=== PATIENT | male | born 1995 | race Caucasian/White ===

== ENCOUNTER 2017-09-20 16:22 | Emergency (ER) | payer OTHER ==
[~2017-09-20] VITALS: Ht 190.5 cm; Wt 76.0 kg
[2017-09-20 16:32] VITALS: TEMP 36.9; Ht 190.5 cm; Wt 76.0 kg
[2017-09-20] MEDS ORDERED: LIDOCAINE/EPINEPH/TETRACAINE 1 EA SYR EXT STA (16:42)
--- NOTE | 2017-09-20 17:14 | EMERGENCY ROOM VISIT NOTE ---
ED Visit Note First contact with patient: 16:39 CHIEF COMPLAINT: Facial laceration HISTORY OF PRESENT ILLNESS: This 21-year-old male patient presents emergency department complaining of a laceration to the right eyebrow that occurred 1 hour prior to arrival. The patient butted heads with someone else while playing basketball.. There was no loss of consciousness, vomiting, or unusual behavior afterwards. Denies neck pain. No headache, nausea, or blurred vision. There is no active bleeding. The patient rates the pain as 0/10. The patient's tetanus shot is up to date. REVIEW OF SYSTEMS: A 6 system review of systems was completed with positives and pertinent negatives listed in the HPI. ALLERGIES: No known drug allergies MEDICATIONS: Reviewed PMH: Otherwise healthy SOCIAL HISTORY: Denies tobacco use occasional EtOH. The patient is a [employer] PHYSICAL EXAM: Vital Signs: Reviewed Nurse's notes, vital signs stable. GENERAL : 21-year-old male, in no acute distress, well-developed, well-nourished. NEURO : The patient is alert and oriented to person place and time. No focal neurological defects. EYES: Pupils are round, equal, and react to light. EOMI. NECK: Supple. No cervical spine tenderness. FACE: No facial bone tenderness or mandibular tenderness SKIN: There is a 2 cm laceration in the lateral aspect of the right eyebrow. The edges gape apart with traction. There is no active bleeding and no foreign material in the wound. There are no deep structures present. EMERGENCY DEPARTMENT COURSE: I examined the patient. Let gel was applied to the wound. Verbal consent was obtained to perform the procedure. Using sterile technique the wound was cleansed with Betadine. Once the patient was anesthetized, the wound was copiously irrigated under pressure with sterile saline. The wound was explored and was as described above. The laceration was repaired using 5 simple interrupted 6-0 nylon sutures with the wound edges being well approximated. The patient tolerated the procedure well. Hemostasis was achieved. The area was cleaned with sterile saline and dressed with bacitracin ointment. . The patient was discharged home in good condition. DIAGNOSIS: Facial laceration DISCHARGE INSTRUCTIONS: Keep wound clean. It is okay to wash the wound with soap and water gently. Do not allow any crusting or dried blood to accumulate on sutures. If this occurs, use a 1:1 solution of hydrogen peroxide/water on a Q-tip to clean the wound. Use an antibiotic ointment for 3 days, then let wound dry. Suture removal in 6 days. Return sooner for any signs of infection (increasing redness, swelling, drainage, fever). Ice for swelling. Ibuprofen 600 mg and Tylenol 1000 mg every 6 hrs for pain. Keep covered when in sun until sutures removed then SPF 50 or higher for one year. Vitamin E oil if desired two weeks after suture removal for reduction of scar. This chart was completed in part utilizing [employer] Voice Recognition software. Attempts were made to minimize the grammatical errors, random word insertions, pronoun errors and incomplete sentences. Any formal questions or concerns about the content, text or information contained within the body of this dictation should be directly addressed to the provider for clarification.
[2017-09-20] MEDS ORDERED: XYLOCAINE 1%/SOD BICARB 20 ML VIAL INFIL ONE (17:17)
[2017-09-20 18:26] VITALS: BP 121/81; PULSE 97; O2SAT 98
== END 2017-09-20 18:26 | disposition home or self-care (01) ==
LOC: C.EDB 16:24 → C.EDD 18:26
DX: S01.111A Laceration without foreign body of right eyelid and periocular area, initial encounter (principal); W50.0XXA Accidental hit or strike by another person, initial encounter